=== PATIENT | male | born 1995 | race Caucasian/White ===

== ENCOUNTER 2022-07-07 09:42 | Emergency (ER) | payer MEDICAID ==
[2022-07-07 11:05] LABS: ESTIMATED GFR 107 mL/min (>60)
== END 2022-07-07 13:22 | disposition home or self-care (01) ==
LOC: FB.ED 09:42
DX: R07.89 Other chest pain (principal); R55 Syncope and collapse
CPT/HCPCS: 36415; 80048; 81001; 84484; 85025; 93005; 99285